=== PATIENT | male | born 1940 ===

== ENCOUNTER 2017-09-17 00:16 | Inpatient (IN) | payer MEDICARE, OTHER ==
[~2017-09-17] VITALS: Ht 172.7 cm; Wt 74.6 kg
[2017-09-17] MEDS ORDERED: MULT-503 PO (01:13)
[2017-09-17] MEDS ORDERED: DOCU-109 PO (01:13)
[2017-09-17] MEDS ORDERED: CYAN10005 PO (01:13)
[2017-09-17] MEDS ORDERED: ASPI-630 PO (01:13)
[2017-09-17] MEDS ORDERED: CHOL500050 PO (01:13)
[2017-09-17] MEDS ORDERED: SERT50TA PO (01:13)
[2017-09-17] MEDS ORDERED: QUET25TA5 PO (01:13)
[2017-09-17] MEDS ORDERED: FOLI1TAB16 PO (01:13)
[2017-09-17] MEDS ORDERED: LACT1TAB18 PO (01:13)
[2017-09-17] MEDS ORDERED: CALC1TAB75 PO (01:13)
[2017-09-17] MEDS ORDERED: METF500T4 PO (01:13)
[2017-09-17] MEDS ORDERED: SIMV20TA3 PO (01:13)
[2017-09-17] MEDS ORDERED: MAGNESIUM HYDROXIDE 2,400 MG/30 ML ORAL.SUSP. PO PRN (05:45)
[2017-09-17] MEDS ORDERED: ACETAMINOPHEN 325 MG TABLET PO PRN (05:45)
[2017-09-17] MEDS ORDERED: MAG HYDROX/AL HYDROX/SIMETH 30 ML ORAL.SUSP PO PRN (05:45)
[2017-09-17] MEDS ORDERED: METHYL SALICYLATE/MENTHOL TOPICAL OINTMENT 29GM TUBE. TP PRN (05:45)
--- NOTE | 2017-09-17 05:47 | NUR ---
Admission Note with Justification for Admission to [facility] Patient admitted to [facility] for protective oversight for emergency stabilization of acute psychiatric crisis. Pt admitted from: Hospital ER Mode of arrival: Secure Transport Accompanied By: Secure Transport Precipitating behaviors that initiated intake and admission:Increased agitation, Confusion and aggression over the last few weeks, Last evening pt became very agitated and aggressive stating "I'm going to get a gun and shoot you all then shoot myself" Description of failure of out patient attempts at stabilization in previous setting list behavior and medication trials: Facility collected a Urine sample to check for a UTI when increased confusion, aggression and Agitation began. Pt then started on Cipro x 10 days without change in behaviors noted, aggression, HI and SI continue Escalate. Behaviors and assessment findings upon admission: Pt disoriented calm and cooperative with cares and assessment, believes the year to be 1987, Oriented to self only. Apical pulse 68 and regular with S1 and S2 heart tones noted, respirations 22 shallow even and non-labored, Lung sounds diminished bilaterally, Bowel sounds active x 4 quads, ABD soft and non-tender to palpation, skin w/d with trace edema noted to BLE, Peripheral pulses palpable and equal bilaterally. Pt assisted into bed, VS, Height and weight obtained, Pt resting in bed without s/s of pain, discomfort or distress noted at this time. Plan: Admit for protective oversight for adjustment and stabilization of medications, behaviors and mood. Intense treatment regimen including groups, medication adjustments, therapy, consistent regimen for ADL's, self care, and sleep hygiene. Daily monitoring by Inpatient staff, Psychiatry, and Medical Physician.
--- NOTE | 2017-09-17 06:17 | EKG ---
[address] [address] Test Date: 2017-09-17 Test Time: 06:14:04 Pat Name: RADHA SILVERMAN Department: Room: [address] [place] [address] Gender: M Bottom Finisher: SANTIAGO : 1940 Requested By: MARISSA WATSON Order Number: [id number] Reading MD: Philippe Macias Measurements Intervals [place] Rate: 69 P: -24 [place]: 144 QRS: -20 QRSD: 78 T: 148 QT: 396 QTc: 426 Interpretive Statements SINUS RHYTHM BASELINE ARTIFACT NON-SPECIFIC ST/T CHANGES Electronically Signed On 09-19-2017 8:26:15 CDT by Philippe Macias
[2017-09-17 06:25] VITALS: BP 143/80
--- NOTE | 2017-09-17 06:45 | NUR ---
Nursing Note: Call placed to Dr. Lubin, Informed of admission and behaviors pt had been having prior to admission. Order received for Zydis 2.5mg PRN Q2H with Max dose of 10mg/24hrs
[2017-09-17] MEDS: CALCIUM CARB/VIT D3 500/200 TABLET PO SCH (08:11)
[2017-09-17] MEDS: DOCUSATE SODIUM 100 MG CAPSULE PO SCH ×2 (08:13→20:18)
[2017-09-17] MEDS: metFORMIN 500 MG TABLET PO SCH ×2 (08:13→14:24)
[2017-09-17] MEDS: CYANOCOBALAMIN (VITAMIN B-12) 1,000 MCG TABLET. PO SCH (08:13)
[2017-09-17] MEDS: SERTRALINE 50 MG TABLET. PO SCH (08:13)
[2017-09-17] MEDS: LACTOBACILLUS ACIDOPH & BULGAR 1 TABLET. PO SCH (08:14)
[2017-09-17] MEDS: FOLIC ACID 1 MG TABLET PO SCH (08:14)
[2017-09-17] MEDS: NICOTINE 21MG PATCH. TD SCH (08:14)
[2017-09-17] MEDS: ASPIRIN 81 MG TAB.CHEW PO SCH (08:14)
[2017-09-17] MEDS: MULTIVITAMIN with MINERAL TABLET. PO SCH (08:14)
[2017-09-17 08:31] LABS: ALBUMIN 3.5 g/dL (3.4-5.0); CALCIUM 9.3 mg/dL (8.5-10.1); GFR 72.8; MAGNESIUM 1.8 mg/dL (1.8-2.4); POTASSIUM 3.6 mmol/L (3.5-5.1); TOTAL BILIRUBIN 0.5 mg/dL (0.2-1.0); TOTAL PROTEIN 7.1 g/dL (6.4-8.2)
[2017-09-17 08:32] LABS: BASO # 0.1 x10^3/uL (0.0-0.2); BASO % 1 % (0-3); EOS # 0.2 x10^3/uL (0.0-0.7); EOS % 2 % (0-3); HEMATOCRIT 46.1 % (39.0-53.0); HEMOGLOBIN 15.7 g/dL (13.0-17.5); LYMPH # 2.6 x10^3/uL (1.0-4.8); LYMPH % 29 % (24-48); MEAN CORPUSCULAR HEMOGLOBIN 31 pg (25-35); MEAN CORPUSCULAR HGB CONC 34 g/dL (31-37); MEAN CORPUSCULAR VOLUME 91 fL (79-100); MONO # 0.6 x10^3/uL (0.0-1.1); MONO % 6 % (0-9); NEUT # 5.7 x10^3uL (1.8-7.7); NEUT % 61 % (31-73); PLATELET COUNT 262 x10^3/uL (140-400); RED BLOOD COUNT 5.08 x10^6/uL (4.30-5.70); RED CELL DISTRIBUTION WIDTH 14.4 % (11.5-14.5); WHITE BLOOD COUNT 9.3 x10^3/uL (4.0-11.0)
--- NOTE | 2017-09-17 13:49 | NUR ---
EARL reviewed Pt. insurance upon admit. SW was notified by virtual customer assistant nursing staff PT. did NOT have [employer] as the Pt's son stated the policy was canceled several months prior. Upon CSNAP prior to PT. admit, Active Part C policy for [employer] shows renewal date of 08/19/17. EARL contacted [employer] and verified that this Pt. does in fact have an active Part C [employer] plan. Pt's son, Ady, was notified and asked if he would like to have Pt. stay at this facility w/ a 45 % out of network co-insurance up to $10,000 or if the preference was for PT. to transfer to a facility that has in-network benefits. Ady stated he thought he canceled this policy, but would like for Pt. to transfer to an in-network facility. Ady stated [facility] in [place] is in-network and he contacted [facility] to send information to [place] for possible transfer. EARL again contacted [employer] to provide initial authorization review for Pt's current admit. 5 days initially authorized for 09/17/17-09/21/17 reference #[id number]. [facility] will be doing a bed search for in-network beds available for this SW to follow up w/regarding a transfer. If there are not any in-network beds available or a transfer is not accepted, [facility] will perform a 1-time single case agreement and provide auth. #. EARL was contacted by [facility] and was told they also are not in network w/[employer]. EARL stated there would be no reason for a transfer if they also are out of network.
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
[2017-09-17] MEDS ORDERED: CHOLECALCIFEROL (VITAMIN D3) 50,000 UNIT CAPSULE PO SCH (16:00)
[2017-09-17 16:04] VITALS: BP 171/96
--- NOTE | 2017-09-17 16:11 | NUR ---
EARL contacted in-network facilities provided by [facility] for possible transfer upon admission. EARL attempted to contact [facility] at [phone], however, was unable to reach anybody available to perform an intake and no way to leave a message. EARL spoke w/ Paula at [facility] at [phone] and was told they were FULL. EARL then contacted [facility] at [phone] and was told to fax an admission intake packet. EARL faxed to [phone]. EARL will notify [facility] in the am regarding outcome of admission/transfer and will be provided a single case agreement for today.
--- NOTE | 2017-09-17 16:20 | NUR ---
EARL contacted Robert Garsia's DPOA/son regarding status of transfer for Pt. EARL will follow up in the am as an admission referral was just sent to [facility].
--- NOTE | 2017-09-17 17:20 | NUR ---
Patient has been provided with Practical Counseling for tobacco cessation. It included a face to face interaction and the following was discussed: Recognizing danger situations, Developing coping skills,Basic cessation information. Will follow for discharge needs and discharge planning.
--- NOTE | 2017-09-17 18:05 | NUR ---
Behavior Intervention Response and Plan: BIRP Note: Behavior: Assumed Care of patient, patient located in Dining Room at shift change. Patient exhibited the following behavior Calm, Compliant, Cooperative. Brief assessment on rounds of vital signs, medication needs, lab studies, and pain. Treatment plan problems Dementia W/ BD and Fall Risk. Intervention: Patient assessed and the following interventions initiated safety checks 15 Minute Checks Cognitive Assessment , Head to toe Assessment , Medications. Response: After interactions and interventions patient responded in the following manner, Calm , Disorganized ,Cooperative. Continue to assess behaviors and condition will continue to monitor throughout the shift as needed. Patient educated on ADL's, and hand hygiene. Plan: Continue to monitor Master Treatment Plan for patient's progress toward short term goals of Decreased Agitation, Decreased Anxiety, termite treater goals to return to previous living setting vs placement. Continue to assess patient for changes in above assessment. Monitor for medication needs, pain, and safety concerns. Hourly rounding performed to ensure safe environment.
[2017-09-17 20:07] LABS: T3 TOTAL 92 ng/dL (71-180); THYROXINE 6.9 ug/dL (4.5-12.0)
[2017-09-17] MEDS: SIMVASTATIN 20 MG TABLET PO SCH (20:18)
[2017-09-17] MEDS: QUEtiapine 50 MG TABLET. PO SCH (20:18)
--- NOTE | 2017-09-17 20:51 | PDOC ---
Exam Elie Demential Exam: Elie Note: Please also refer to the separate dictated note~for this date of service dictated separately.~Patient seen individually. Discussed the patient with Nursing staff reviewed the chart.~Reviewed interim history and current functioning. Reviewed vital signs,~Labs/ Radiology~and current medications noted below. Continue current treatment with the changes noted in the dictated addendum note Assessment: Vital Signs: Vital Signs Date Time Temp Pulse Resp B/P (MAP) Pulse Ox O2 Delivery O2 Flow Rate FiO2 09/17/17 16:04 97.6 68 18 171/96 (121) 97 09/17/17 06:25 Room Air I&O Intake and Output 09/18/17 07:00 Intake Total 960 ml Balance 960 ml Intake Oral 960 ml Labs: Laboratory Tests Test 09/17/17 07:46 White Blood Count 9.3 x10^3/uL (4.0-11.0) Red Blood Count 5.08 x10^6/uL (4.30-5.70) Hemoglobin 15.7 g/dL (13.0-17.5) Hematocrit 46.1 % (39.0-53.0) Mean Corpuscular Volume 91 fL (79-100) Mean Corpuscular Hemoglobin 31 pg (25-35) Mean Corpuscular Hemoglobin Concent 34 g/dL (31-37) Red Cell Distribution Width 14.4 % (11.5-14.5) Platelet Count 262 x10^3/uL (140-400) Neutrophils (%) (Auto) 61 % (31-73) Lymphocytes (%) (Auto) 29 % (24-48) Monocytes (%) (Auto) 6 % (0-9) Eosinophils (%) (Auto) 2 % (0-3) Basophils (%) (Auto) 1 % (0-3) Neutrophils # (Auto) 5.7 x10^3uL (1.8-7.7) Lymphocytes # (Auto) 2.6 x10^3/uL (1.0-4.8) Monocytes # (Auto) 0.6 x10^3/uL (0.0-1.1) Eosinophils # (Auto) 0.2 x10^3/uL (0.0-0.7) Basophils # (Auto) 0.1 x10^3/uL (0.0-0.2) Sodium Level 142 mmol/L (136-145) Potassium Level 3.6 mmol/L (3.5-5.1) Chloride Level 106 mmol/L (98-107) Carbon Dioxide Level 29 mmol/L (21-32) Anion Gap 7 (6-14) Blood Urea Nitrogen 16 mg/dL (8-26) Creatinine 1.0 mg/dL (0.7-1.3) Estimated GFR (Cockcroft-Gault) 72.8 BUN/Creatinine Ratio 16 (6-20) Glucose Level 98 mg/dL (70-99) Calcium Level 9.3 mg/dL (8.5-10.1) Magnesium Level 1.8 mg/dL (1.8-2.4) Total Bilirubin 0.5 mg/dL (0.2-1.0) Aspartate Amino Transferase (AST) 15 U/L (15-37) Alanine Aminotransferase (ALT) 15 U/L (16-63) L Alkaline Phosphatase 85 U/L (46-116) Total Protein 7.1 g/dL (6.4-8.2) Albumin 3.5 g/dL (3.4-5.0) Albumin/Globulin Ratio 1.0 (1.0-1.7) 25-Hydroxy Vitamin D Total Pending Thyroxine (T4) 6.9 ug/dL (4.5-12.0) Total Triiodothyronine (TT3) 92 ng/dL (71-180) RPR Titer Additional Testing Pending Current Medications: Meds: Current Medications Acetaminophen (Tylenol) 650 mg PRN Q6HRS PRN PO PAIN / TEMP; Start 09/17/17 at 05:45 Multi-Ingredient Ointment (Analgesic [place]) 1 manan PRN QID PRN TP MUSCLE PAIN; Start 09/17/17 at 05:45 Al Hydroxide/Mg Hydroxide (Mylanta Plus Xs) 15 ml PRN AFTMEALHC PRN PO DYSPEPSIA; Start 09/17/17 at 05:45 Magnesium Hydroxide (Milk Of Magnesia) 2,400 mg PRN QHS PRN PO CONSTIPATION; Start 09/17/17 at 05:45 Nicotine (Nicoderm Cq 21mg) 1 patch DAILY TD Last administered on 09/17/17t 08 :14; Start 09/17/17 at 09:00 Quetiapine Fumarate (SEROquel) 25 mg QHS PO ; Start 09/17/17 at 21:00; Stop at 21:00; Status DC Sertraline HCl (Zoloft) 50 mg DAILY PO Last administered on 09/17/17 08:13; Start 09/17/17 at 09:00 Aspirin (Children'S Aspirin) 81 mg DAILY PO Last administered on 09/17/17 08: 14; Start 09/17/17 at 09:00 Vitamin D (Vitamin D3) 50,000 unit QM PO Last administered on 09/17/17 16:34 ; Start 09/17/17 at 16:00 Cyanocobalamin (Vitamin B-12) 1,000 mcg DAILY PO Last administered on 08:13; Start 09/17/17 at 09:00 Docusate Sodium (Colace) 100 mg BID PO Last administered on 09/17/17 20:18; Start 09/17/17 at 09:00 Folic Acid (Folic Acid) 1 mg DAILY PO Last administered on 09/17/17 08:14; Start 09/17/17 at 09:00 Metformin HCl (Glucophage) 500 mg BIDWMEALS PO Last administered on 09/17/17 14:24; Start 09/17/17 at 08:00 Simvastatin (Zocor) 20 mg HS PO Last administered on 09/17/17 20:18; Start 09/17/17 at 21:00 Calcium/Vitamin D (Oscal D 500mg/ 200uts) 0.5 tab DAILYWBKFT PO Last administered on 09/17/17 08:11; Start 09/17/17 at 08:00 Lactobacillus Acidophilus (Bacid, Elizabeth-Bid) 2 tab DAILY PO Last administered on 09/17/17 08:14; Start 09/17/17 at 09:00 Multivitamins/ Calcium (Thera-M Plus) 1 tab DAILY PO Last administered on 09/17 08:14; Start 09/17/17 at 09:00 Olanzapine (ZyPREXA ZYDIS) 2.5 mg PRN Q2HR PRN PO PSYCHOSIS; Start 09/17/17 at 06:45 Quetiapine Fumarate (SEROquel) 50 mg QHS PO Last administered on 10/30/17at 20: 18; Start 09/17/17 at 21:00 Active Scripts Active Reported Acidophilus (Lactobacillus Acidophilus) 1 Each Tablet 1 Tab PO DAILY Vitamin D3 (Cholecalciferol (Vitamin D3)) 50,000 Unit Capsule 50,000 Unit PO QM Vitamin B-12 (Cyanocobalamin (Vitamin B-12)) 1,000 Mcg Tablet 1,000 Mcg PO DAILY Thera-M (Multivits, W-,Other Min) 1 Each Tablet 1 Tab PO DAILY Simvastatin 20 Mg Tablet 20 Mg PO HS Zoloft (Sertraline Hcl) 50 Mg Tablet 50 Mg PO DAILY Seroquel (Quetiapine Fumarate) 25 Mg Tablet 25 Mg PO QHS Metformin Hcl 500 Mg Tablet 500 Mg PO BIDWMEALS Folic Acid 1 Mg Tablet 1 Mg PO DAILY Colace (Docusate Sodium) 100 Mg Capsule 100 Mg PO BID Calcium 600 + Vit D 200 Tablet (Calcium Carbonate/Vitamin D3) 1 Each Tablet 0.5 Tab PO DAILY Aspirin 81 Mg Tab.chew 81 Mg PO DAILY FABIANO WARREN MD Sep 17, 2017 20:51
[2017-09-17] MEDS ORDERED: QUEtiapine 25 MG TABLET. PO SCH (21:00)
[2017-09-17 21:48] LABS: THYROID STIM HORMONE (TSH) 3.755 uIU/mL (0.358-3.740)
--- NOTE | 2017-09-17 23:02 | NUR ---
Behavior Intervention Response and Plan: BIRP Note: Behavior: Assumed Care of patient, patient located in Patient Room at shift change. Patient exhibited the following behavior Calm, Disorganized, Withdrawn. Brief assessment on rounds of vital signs, medication needs, lab studies, and pain. Treatment plan problems 1 and 2. Intervention: Patient assessed and the following interventions initiated safety checks 15 Minute Checks Cognitive Assessment , Head to toe Assessment , Medications. Response: After interactions and interventions patient responded in the following manner, Calm , Compliant ,Cooperative. Continue to assess behaviors and condition will continue to monitor throughout the shift as needed. Patient educated on ADL's, and hand hygiene. 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 Continue to assess patient for changes in above assessment. Monitor for medication needs, pain, and safety concerns. Hourly rounding performed to ensure safe environment.
[2017-09-18] MEDS ORDERED: ACET325T9 PO (00:44)
[2017-09-18] MEDS ORDERED: MAG355OR17 PO (00:47)
[2017-09-18] MEDS ORDERED: MAGN2400 PO (00:48)
[2017-09-18] MEDS ORDERED: NICO1PAT21 TD (00:49)
[2017-09-18] MEDS ORDERED: METH29OI TP (00:49)
[2017-09-18] MEDS ORDERED: OLAN5TAB7 PO (00:51)
[2017-09-18] MEDS ORDERED: QUET50TA PO (00:52)
[2017-09-18 05:58] VITALS: BP 124/54
--- NOTE | 2017-09-18 09:00 | NUR ---
SW received message from [facility] regarding follow up for Pt. to transfer to in-network facility vs. stay at this facility and possibly receive a one time in network contract. EARL contacted [facility] w/[facility] regarding follow up on the referral sent yesterday. EARL was told they would review w/their drLaci and contact this SW w/an answer.
[2017-09-18] MEDS: LACTOBACILLUS ACIDOPH & BULGAR 1 TABLET. PO SCH (09:07)
[2017-09-18] MEDS: SERTRALINE 50 MG TABLET. PO SCH (09:08)
[2017-09-18] MEDS: MULTIVITAMIN with MINERAL TABLET. PO SCH (09:08)
[2017-09-18] MEDS: CALCIUM CARB/VIT D3 500/200 TABLET PO SCH (09:08)
[2017-09-18] MEDS: ASPIRIN 81 MG TAB.CHEW PO SCH (09:08)
[2017-09-18] MEDS: metFORMIN 500 MG TABLET PO SCH ×2 (09:09→17:22)
[2017-09-18] MEDS: DOCUSATE SODIUM 100 MG CAPSULE PO SCH ×2 (09:09→20:28)
[2017-09-18] MEDS: FOLIC ACID 1 MG TABLET PO SCH (09:09)
[2017-09-18] MEDS: CYANOCOBALAMIN (VITAMIN B-12) 1,000 MCG TABLET. PO SCH (09:09)
[2017-09-18] MEDS: NICOTINE 21MG PATCH. TD SCH (09:09)
--- NOTE | 2017-09-18 10:39 | NUR ---
Behavior Intervention Response and Plan: BIRP Note: Behavior: Assumed Care of patient, patient located in Hallway at shift change. Patient exhibited the following behavior Calm, Appropriate, Cooperative. Brief assessment on rounds of vital signs, medication needs, lab studies, and pain. Treatment plan problems 1 and 2. Intervention: Patient assessed and the following interventions initiated safety checks 15 Minute Checks Cognitive Assessment , Head to toe Assessment , Medications. Response: After interactions and interventions patient responded in the following manner, Disorganized , Compliant ,Cooperative. Continue to assess behaviors and condition will continue to monitor throughout the shift as needed. Patient educated on ADL's, and hand hygiene. Plan: Continue to monitor Master Treatment Plan for patient's progress toward short term goals of Decreased Agitation, Decreased Aggression, long-term goals to return to previous living setting vs placement. Continue to assess patient for changes in above assessment. Monitor for medication needs, pain, and safety concerns. Hourly rounding performed to ensure safe environment.
--- NOTE | 2017-09-18 12:17 | NUR ---
EARL received call from [facility] at [facility] regarding transfer referral. SW was requested to send Psych Eval for their review. EARL stated Psychiatrist rounded last evening, however, [facility] has not populated in system for this SW to access. EARL was told they would not consider referral w/o that information. EARL contacted [employer] for further assistance w/locating the HmP to send.
--- NOTE | 2017-09-18 12:22 | NUR ---
EARL again attempted to contact [facility] for possible transfer at [phone] as this was the number provided yesterday when EARL was attempting to provide referral intake. Again, no person answered the phone and no ability to leave a message. EARL then called the direct nurse number at [phone] and was provided w/a pager number for intakes. EARL paged [phone].
--- NOTE | 2017-09-18 12:54 | NUR ---
EARL spoke w/Salvador (pager [phone]) at [place] regarding referral to [facility]. EARL faxed admit referral to [phone] for review.
--- NOTE | 2017-09-18 12:54 | HP ---
ADMIT DATE: 09/17/2017 PSYCHIATRIC ADMISSION HISTORY/EVALUATION This is a late entry, date of service 09/17/2017 and covers elements not covered in my initial note of 09/17/2017. The patient seen individually evening of 09/17/2017 for this evaluation. Discussed with nursing staff, reviewed the chart, reviewed current and past records, discussed with Dr. Jesus, who had covered for me during my vacation the previous few days. IDENTIFYING DATA: The patient is a 76-year-old male referred to us from [facility] by Dr. Friedman, his primary care physician and Dr. Breen, psychiatrist after he was sent to the [facility] on 09/16/2017 due to increased agitation, aggression over the past several weeks. Symptoms had been escalating until the patient became suicidal, homicidal, stating he was going to kill staff and then himself with a plan to shoot everyone. He is extremely confused, psychotic, aggressive, disruptive, dangerous, referred for inpatient psychiatric stabilization. CHIEF COMPLAINT: "No." The patient is quite confused, oriented perhaps just to himself. HISTORY OF PRESENT ILLNESS: The patient has history of dementia, Alzheimer's vascular type. He has been residing at the above jail for some time, but over the past several days behaviors have been escalating. He has been more paranoid, depressed, confused. He has had sleep and appetite changes. No clear symptoms of bipolar disorder. PAST PSYCHIATRIC HISTORY: As above. PAST MEDICAL HISTORY: Coronary artery disease, diabetes mellitus, hyperlipidemia, hypertension, status post fracture right humerus in 12/2016. CODE STATUS: DNR. ALLERGIES: Versed and Vistaril. Accu-Cheks b.i.d. due to diabetes mellitus with use of metformin. DIET: Regular. MEDICATIONS: Whole. Ambulates with assistance. UA was negative at [facility], but he was put on a 10-day course of Cipro anyway. CURRENT PSYCHOTROPICS: Seroquel 25 mg at bedtime, Zoloft 50 mg a day, Zyprexa was added p.r.n. for psychosis, agitation. Takes his medications whole. REACTION TO HOSPITALIZATION: The patient oblivious to these assets. SOCIAL HISTORY: Supportive family, stable living at the jail. MENTAL STATUS EXAMINATION: The patient is seen individually evening of 09/17/2017. He is oriented to himself, somewhat withdrawn. Insight, judgment, recent and remote memory, attention, concentration, fund of knowledge poor, consistent with his diagnoses. He is somewhat delusional. No active suicidal or homicidal ideation. LABORATORY DATA: Reviewed. IMPRESSION: Major neurocognitive disorder, Alzheimer, vascular with depression, delusion, behavioral disturbance; anxiety disorder, unspecified; impulse control disorder, unspecified. Rest as above. PLAN: Admit to geropsychiatry unit at [facility]. I will see the patient daily individually from a psychiatric standpoint. Request medical followup with Dr. Gomez/Dr. Hurt. Continue the patient on his current psychotropics, increase Seroquel from 25 mg at bedtime to 50 mg at bedtime. Continue Zoloft along with Zyprexa p.r.n., cholinesterase inhibitors, on Namenda would have little benefit at this stage of his dementia and we will avoid using them. May consider Depakote as a mood stabilizer if the above changes are inadequate to help control his mood, anger, aggression. The patient's further decisions will be made as hospitalization progresses. Review drug interactions. Risk/benefit ratio favors no further change for now. FABIANO WARREN MD DR: OLGA/roque JOB#: [id number] / [id number]
--- NOTE | 2017-09-18 13:06 | NUR ---
SW attempted to contact [facility] to inform of current transfer to an in-network facility. EARL was told the cm was not available at this time and SW would receive a return call.
--- NOTE | 2017-09-18 14:32 | NUR ---
SW received call from Salvador [facility]aman [place] requesting records from Pt's facility. SW faxed clinical notes provided.
[2017-09-18 16:17] VITALS: BP 146/77
--- NOTE | 2017-09-18 16:19 | NUR ---
EARL contacted Salvador at [facility] regarding follow up w/final clinical notes provided by this EARL for possible transition admit. Salvador stated he has not been able to "move the referral forward" and would need to be followed up on tomorrow. EARL verified EARL would be contacted regarding possible transition first thing in the am. EARL faxed HmP and [place] notes to [facility] for possible transition admit. This was the only information needed for them to pursue review. EARL then attempted to contact [facility] to follow up on the authorization call as EARL called earlier in the day and was told a message was left for the and would return a call to this SW. EARL did not receive a return call, thus calling again at 1615 for follow up. EARL reached an after hours person who stated she had limited access to help with this situation other then to provide new authorization. EARL requested notes to be included stating this SW attempted to call in w/updated transition information twice today w/no ability to move forward. EARL was assured a note was put in the case file w/SW call in and information w/status of [facility] transition being at a stand still. Recommended for this SW to call back in the AM for follow up.
--- NOTE | 2017-09-18 19:22 | HP ---
ADMIT DATE: 09/17/2017 REASON FOR ADMISSION TO SENIOR BEHAVIORAL UNIT: This is a 76-year-old male who resides at [facility], but came from [facility]. He has been making suicidal ideation, homicidal threats, states he was going to shoot himself, increased confusion with aggression. Urinalysis was done, which was negative and he was sent to the ER. He was placed on antibiotics for 10 days, questionable reason. PAST MEDICAL HISTORY: Coronary artery disease, dementia, diabetes, hyperlipidemia, hypertension, impaired mobility. MEDICATIONS: Reviewed. SOCIAL HISTORY: The patient resides in a intermediate. He does currently smoke unknown amount. Refused flu shot at the intermediate. Refuses pneumonia shot. REVIEW OF SYSTEMS: Did not have any particular complaints. OBJECTIVE: VITAL SIGNS: Blood pressure 146/77, temperature 97.1, pulse 73, respirations 18, pulse ox 98% on room air. GENERAL: A disheveled 76-year-old in no acute distress. His height is 68 inches, weight is 164.38 pounds. HEENT: His hearing is normal. His eyes were clear, little bit bloodshot. His nose was patent. Throat was clear. Tongue was midline. NECK: Supple. LUNGS: Clear. CARDIOVASCULAR: Regular rhythm and rate. ABDOMEN: Soft, nontender. He is incontinent. EXTREMITIES: Without edema. MUSCULOSKELETAL: Moves all of his extremities. NEUROLOGIC: Cranial nerves appear to be intact. His gait is unsteady as he was observed yesterday. LABORATORY DATA: CBC was normal, slightly iron deficient, RPR nonreactive. Other studies pending as TSH 3.755. ASSESSMENT: 1. Dementia with behavior disturbance. 2. Frail, elderly. 3. Fall risk. 4. Diabetes. 5. Hypertension. PLAN: Follow along with Dr. Lubin to treat his medical conditions. CHIKIS MABRY DO DR: ROMEO/roque JOB#: [id number] / [id number]
[2017-09-18] MEDS: QUEtiapine 50 MG TABLET. PO SCH (20:28)
[2017-09-18] MEDS: SIMVASTATIN 20 MG TABLET PO SCH (20:28)
--- NOTE | 2017-09-18 22:00 | NUR ---
Behavior Intervention Response and Plan: BIRP Note: Behavior: Assumed Care of patient, patient located in Hallway at shift change. Patient exhibited the following behavior Restless, Disorganized, Agitated. Brief assessment on rounds of vital signs, medication needs, lab studies, and pain. Treatment plan problems . Intervention: Patient assessed and the following interventions initiated safety checks 15 Minute Checks Cognitive Assessment , Head to toe Assessment , Medications. Response: After interactions and interventions patient responded in the following manner, Agitated , Resistive ,Disorganized. Continue to assess behaviors and condition will continue to monitor throughout the shift as needed. Patient educated on ADL's, and hand hygiene. Plan: Continue to monitor Master Treatment Plan for patient's progress toward short term goals of Decreased Agitation, No harm To self/ others, ferry terminal supervisor goals to return to previous living setting vs placement. Continue to assess patient for changes in above assessment. Monitor for medication needs, pain, and safety concerns. Hourly rounding performed to ensure safe environment.
--- NOTE | 2017-09-18 22:19 | PDOC ---
Exam Elie Demential Exam: Elie Note: Please also refer to the separate dictated note~for this date of service dictated separately.~Patient seen individually. Discussed the patient with Nursing staff reviewed the chart.~Reviewed interim history and current functioning. Reviewed vital signs,~Labs/ Radiology~and current medications noted below. Continue current treatment with the changes noted in the dictated addendum note Assessment: Vital Signs: Vital Signs Date Time Temp Pulse Resp B/P (MAP) Pulse Ox O2 Delivery O2 Flow Rate FiO2 09/18/17 16:17 97.1 73 18 146/77 (100) 98 09/17/17 06:25 Room Air I&O Intake and Output 09/19/17 07:00 Intake Total 840 ml Balance 840 ml Intake Oral 840 ml Labs: Laboratory Tests Test 09/18/17 07:50 09/18/17 16:13 Glucose (Fingerstick) 77 mg/dL (70-99) 81 mg/dL (70-99) Current Medications: Meds: Current Medications Acetaminophen (Tylenol) 650 mg PRN Q6HRS PRN PO PAIN / TEMP; Start 09/17/17 at 05:45 Multi-Ingredient Ointment (Analgesic [place]) 1 alvin PRN QID PRN TP MUSCLE PAIN; Start 09/17/17 at 05:45 Al Hydroxide/Mg Hydroxide (Mylanta Plus Xs) 15 ml PRN AFTMEALHC PRN PO DYSPEPSIA; Start 09/17/17 at 05:45 Magnesium Hydroxide (Milk Of Magnesia) 2,400 mg PRN QHS PRN PO CONSTIPATION; Start 09/17/17 at 05:45 Nicotine (Nicoderm Cq 21mg) 1 patch DAILY TD Last administered on 09/18/17 09 :09; Start 09/17/17 at 09:00 Quetiapine Fumarate (SEROquel) 25 mg QHS PO ; Start 09/17/17 at 21:00; Stop at 21:00; Status DC Sertraline HCl (Zoloft) 50 mg DAILY PO Last administered on 09/18/17 09:08; Start 09/17/17 at 09:00 Aspirin (Children'S Aspirin) 81 mg DAILY PO Last administered on 09/18/17 09: 08; Start 09/17/17 at 09:00 Vitamin D (Vitamin D3) 50,000 unit QM PO Last administered on 09/17/17 16:34 ; Start 09/17/17 at 16:00 Cyanocobalamin (Vitamin B-12) 1,000 mcg DAILY PO Last administered on 09:09; Start 09/17/17 at 09:00 Docusate Sodium (Colace) 100 mg BID PO Last administered on 09/18/17 20:28; Start 09/17/17 at 09:00 Folic Acid (Folic Acid) 1 mg DAILY PO Last administered on 09/18/17 09:09; Start 09/17/17 at 09:00 Metformin HCl (Glucophage) 500 mg BIDWMEALS PO Last administered on 09/18/17 17:22; Start 09/17/17 at 08:00 Simvastatin (Zocor) 20 mg HS PO Last administered on 09/18/17 20:28; Start 09/17/17 at 21:00 Calcium/Vitamin D (Oscal D 500mg/ 200uts) 0.5 tab DAILYWBKFT PO Last administered on 09/18/17 09:08; Start 09/17/17 at 08:00 Lactobacillus Acidophilus (Bacid, Elizabeth-Bid) 2 tab DAILY PO Last administered on 09/18/17 09:07; Start 09/17/17 at 09:00 Multivitamins/ Calcium (Thera-M Plus) 1 tab DAILY PO Last administered on 09/18 09:08; Start 09/17/17 at 09:00 Olanzapine (ZyPREXA ZYDIS) 2.5 mg PRN Q2HR PRN PO PSYCHOSIS; Start 09/17/17 at 06:45 Quetiapine Fumarate (SEROquel) 50 mg QHS PO Last administered on 09/18/17 20: 28; Start 09/17/17 at 21:00 Active Scripts Active Reported Olanzapine Odt (Olanzapine) 5 Mg Tab.rapdis 2.5 Mg PO PRN Q2HR PRN NICODERM CQ 21mg (Nicotine) 1 Each Patch.td24 1 Patch TD DAILY Analgesic [place] (Methyl Salicylate/Menthol) 28 Gm Oint...g. 1 Alvin TP PRN QID PRN Milk Of Magnesia (Magnesium Hydroxide) 2,400 Mg/10 Ml Oral.susp 2,400 Mg PO PRN QHS PRN Advanced Antacid Liquid (Mag Hydrox/Al Hydrox/Simeth) 355 Ml Oral.susp 15 Ml PO PRN AFTMEALHC PRN Tylenol (Acetaminophen) 325 Mg Tablet 650 Mg PO PRN Q6HRS PRN Acidophilus (Lactobacillus Acidophilus) 1 Each Tablet 1 Tab PO DAILY Vitamin D3 (Cholecalciferol (Vitamin D3)) 50,000 Unit Capsule 50,000 Unit PO QM Vitamin B-12 (Cyanocobalamin (Vitamin B-12)) 1,000 Mcg Tablet 1,000 Mcg PO DAILY Thera-M (Multivits, W-,Other Min) 1 Each Tablet 1 Tab PO DAILY Simvastatin 20 Mg Tablet 20 Mg PO HS Zoloft (Sertraline Hcl) 50 Mg Tablet 50 Mg PO DAILY Seroquel (Quetiapine Fumarate) 25 Mg Tablet 25 Mg PO QHS Metformin Hcl 500 Mg Tablet 500 Mg PO BIDWMEALS Folic Acid 1 Mg Tablet 1 Mg PO DAILY Colace (Docusate Sodium) 100 Mg Capsule 100 Mg PO BID Calcium 600 + Vit D 200 Tablet (Calcium Carbonate/Vitamin D3) 1 Each Tablet 0.5 Tab PO DAILY Aspirin 81 Mg Tab.chew 81 Mg PO DAILY Diagnosis: Problems: (1) Alzheimer's dementia (2) Anxiety disorder (3) Dementia, vascular, with delusions (4) Impulse control disorder (5) Major depressive disorder, recurrent episode (6) Major neurocognitive disorder, due to vascular disease, with behavioral disturbance, mild FABIANO WARREN MD Sep 18, 2017 22:19
--- NOTE | 2017-09-18 22:30 | NUR ---
Pt wandering talking about 22 yr old son that was sentenced to execution. Thinks we are killing people here and that we are going to him as well. Approached staff and pts in an aggressive manner several times. PRN Delonte given and placed in bed.
--- NOTE | 2017-09-18 23:00 | NUR ---
Awake in bed calmer now no sign of aggression.
--- NOTE | 2017-09-19 01:50 | NUR ---
Wide awake in bed rambling unintelligible speech. PRN given.
--- NOTE | 2017-09-19 05:52 | NUR ---
Tylenol given for co hip pain.
[2017-09-19 06:04] VITALS: BP 134/65
[2017-09-19] MEDS: MULTIVITAMIN with MINERAL TABLET. PO SCH (08:10)
[2017-09-19] MEDS: SERTRALINE 50 MG TABLET. PO SCH (08:10)
[2017-09-19] MEDS: metFORMIN 500 MG TABLET PO SCH (08:10)
[2017-09-19] MEDS: LACTOBACILLUS ACIDOPH & BULGAR 1 TABLET. PO SCH (08:10)
[2017-09-19] MEDS: DOCUSATE SODIUM 100 MG CAPSULE PO SCH (08:10)
[2017-09-19] MEDS: FOLIC ACID 1 MG TABLET PO SCH (08:10)
[2017-09-19] MEDS: CALCIUM CARB/VIT D3 500/200 TABLET PO SCH (08:11)
[2017-09-19] MEDS: CYANOCOBALAMIN (VITAMIN B-12) 1,000 MCG TABLET. PO SCH (08:11)
[2017-09-19] MEDS: ASPIRIN 81 MG TAB.CHEW PO SCH (08:11)
[2017-09-19] MEDS: NICOTINE 21MG PATCH. TD SCH (08:12)
--- NOTE | 2017-09-19 09:00 | NUR ---
SW received message from Tasha at [facility] requesting additional information on Pt's DPOA status. EARL returned her call, leaving a message, stating the current DPOA paperwork clearly states it is "effectively immediately". SW is waiting on a call back from [facility] and [facility] regarding acceptance of transfer.
--- NOTE | 2017-09-19 10:09 | NUR ---
Behavior Intervention Response and Plan: BIRP Note: Behavior: Assumed Care of patient, patient located in Day Room at shift change. Patient exhibited the following behavior Calm, Social, Compliant. Brief assessment on rounds of vital signs, medication needs, lab studies, and pain. Treatment plan problems 1 and 2. Intervention: Patient assessed and the following interventions initiated safety checks 15 Minute Checks Cognitive Assessment , Head to toe Assessment , Medications. Response: After interactions and interventions patient responded in the following manner, Disorganized , Calm ,Compliant. Continue to assess behaviors and condition will continue to monitor throughout the shift as needed. Patient educated on ADL's, and hand hygiene. Plan: Continue to monitor Master Treatment Plan for patient's progress toward short term goals of Decreased Agitation, Decreased Aggression, extermination inspector goals to return to previous living setting vs placement. Continue to assess patient for changes in above assessment. Monitor for medication needs, pain, and safety concerns. Hourly rounding performed to ensure safe environment.
--- NOTE | 2017-09-19 10:16 | NUR ---
SW contacted Philly at [facility] [phone] to provide updates regarding transition to an in-network facility. EARL expressed the difficulty w/ both [facility] and [facility] providing a definitive answer on acceptance or denial. Philly stated for this SW to follow up today, and if there is not an answer by either facility, to contact her by 1500 and they would provide a single case agreement. Philly stated this would be in the Pt's best interest as he has been at this facility for now 3 days and this SW has spent too many hours attempting to transfer w/no luck. SW will follow up.
--- NOTE | 2017-09-19 11:13 | NUR ---
patient delusional, talking about bullets and a gun. Stated he would give nurse bullets, acting suspicious, this behavior continues from last nights episode. Given PRN zyprexa for psychosis per order and will continue to monitor.
[2017-09-19 11:45] VITALS: BP 115/62
--- NOTE | 2017-09-19 12:00 | NUR ---
At 1144 pediatric acute care unit nurse heard a thump and someone say "help". It was discovered that Patient was lying on the floor, on his right side, in his room near his bed. Patient stated he was "trying to lay down". It appeared that his right shoe was not on correctly. Patient has Hx of right wrist injury, and there is a bump on the joint of that wrist. Patient is stating that his right wrist is hurting. Received order from Dr. Lory Gomez at 1145 to obtain xray of right wrist. Vital signs obtained, WNL, patient assisted to the side of the bed.
--- NOTE | 2017-09-19 13:59 | NUR ---
SW received call from [facility] accepting Pt for transfer. SW will complete Hospital Transfer w/EMS form and contact Pt's son w/dc details.
--- NOTE | 2017-09-19 14:11 | RAD ---
Right wrist, 3 views, 09/19/2017: History: Fall, wrist pain The bony structures are demineralized. There is deformity of the distal radius due to an old impacted fracture. The fracture is predominantly healed. There is a lucency along the articular surface of the distal radius which is probably an old incompletely fused segment of the old fracture line. A new fracture is less likely. There is a mildly displaced nonunited ulnar styloid fracture which may be old. The carpal bones are intact. No wrist dislocation is evident. IMPRESSION: 1. Old distal radial fracture. A small re-fracture along its articular surface cannot entirely excluded. 2. Ulnar styloid fracture, also probably old.
--- NOTE | 2017-09-19 14:13 | NUR ---
[facility] Social Work Discharge Planning Form Patient Name RADHA SILVERMAN Admit Date: 09/17/17 DISCHARGE PLAN Discharge Destination: transfer to [facility] Entrance Transportation: EMS 09/19/17 DISCHARGE TO FACILITY Facility: [facility] Address: [address] [place] [address] [address], [place] [address] Contact Name: PCP: at location upon transfer Psychiatrist: at location upon transfer
--- NOTE | 2017-09-19 14:34 | NUR ---
Psychosocial Assessment completed w/PT's son/DPOAAdy. Pt. was born and raised in [place], [place] w/2 sisters. Pt. had a happy childhood w/no known trauma. No family history of Dementia or alcohol/substance abuse noted. Pt. completed HS, his named Lily and had 4 children named Elaine, Ady, Fuad ( from suicide) and Hima ( from suicide). Pt's at age 50 and PT. did not remarry. Pt. worked all his adult life as a [employer] [place]. Pt. has no history of alcohol or substance abuse and no known SI attempts. Pt. resided independently until December 2016 when he fell off his steps and broke his shoulder and arm. Pt. then transitioned from [place], [facility], and Pt's son's house until final admit to LTC at [facility] May 2017. Pt. was given a Dementia diagnosis recently this year at [facility]. GOALS: Pt. is unable to process this question due to cognitive impairment. Pt's son's Goal is to have Pt. transfer to an in-network facility to complete mental health stability and then transition to a memory care unit. 1. Family support 2. Community Support
--- NOTE | 2017-09-19 14:52 | NUR ---
per xray there is an old distal radial fracture. A small refracture along its articular surface cannot be entirely excluded. Ulnar styloid fracture, also probably old. Applied procare wrist splint per Dr. Gomez instruction.
--- NOTE | 2017-09-19 15:03 | NUR ---
Authorization from [facility] for September 17 and 2016 is #[id number] (single case agreement). Authorization that will be provided to Cornelio Messina for September 19- is #[id number] w/review scheduled on the . will provide this information to Cornelio Messina upon dc.
[2017-09-19] MEDS ORDERED: LORazepam 1 MG TABLET PO ONE (16:00)
--- NOTE | 2017-09-19 16:23 | NUR ---
discharged to [facility] at 1350 by EMS. Patient reluctant to get onto [facility]. Patient given ativan 1mg and zyprexa zydis 5mg PO prior to discharge. Report called to IVANNA Matos at [place].
--- NOTE | 2017-09-19 16:25 | NUR ---
Tobacco Discharge Note [facility] Tobacco Hotline called with patient prior to discharge, Patient combative at discharge, refused to call. Tobacco cessation medication listed with current medications for discharge. YES Transition Record was faxed to follow-up provider with the following elements: Reason for admission, procedures, tests, principal diagnosis, pending studies, patient instructions, 11/06 contact information for unit, phone number to obtain pending test results, plan for follow-up care, physician follow-up, advanced directive information, and medication list with dose, duration and instructions. This information was included in the following documents: History and physical, lab results, study results, progress notes, social work planning form, DC instruction form, patient visit summary, and medication reconciliation form. Date & time record faxed: 09/19/17 [id number] Record faxed to: [facility]. Record discussed with/ report given to: IVANNA Matos
--- NOTE | 2017-09-19 18:32 | PDOC ---
Exam Elie Demential Exam: Elie Note: Please also refer to the separate dictated note~for this date of service dictated separately.~Patient seen individually. Discussed the patient with Nursing staff reviewed the chart.~Reviewed interim history and current functioning. Reviewed vital signs,~Labs/ Radiology~and current medications noted below. Continue current treatment with the changes noted in the dictated addendum note Assessment: Vital Signs: Vital Signs Date Time Temp Pulse Resp B/P (MAP) Pulse Ox O2 Delivery O2 Flow Rate FiO2 09/19/17 11:45 88 17 115/62 (79) 98 Room Air 09/19/17 06:04 97.0 I&O Intake and Output 09/20/17 06:59 Intake Total 240 ml Balance 240 ml Intake Oral 240 ml Labs: Laboratory Tests Test 09/19/17 07:07 Glucose (Fingerstick) 78 mg/dL (70-99) Current Medications: Meds: Current Medications Acetaminophen (Tylenol) 650 mg PRN Q6HRS PRN PO PAIN / TEMP Last administered on 09/19/17 05:52; Start 09/17/17 at 05:45; Stop 09/19/17 at 16:28; Status DC Multi-Ingredient Ointment (Analgesic [place]) 1 alvin PRN QID PRN TP MUSCLE PAIN; Start 09/17/17 at 05:45; Stop 09/19/17 at 16:28; Status DC Al Hydroxide/Mg Hydroxide (Mylanta Plus Xs) 15 ml PRN AFTMEALHC PRN PO DYSPEPSIA; Start 09/17/17 at 05:45; Stop 09/19/17 at 16:28; Status DC Magnesium Hydroxide (Milk Of Magnesia) 2,400 mg PRN QHS PRN PO CONSTIPATION; Start 09/17/17 at 05:45; Stop 09/19/17 at 16:28; Status DC Nicotine (Nicoderm Cq 21mg) 1 patch DAILY TD Last administered on 09/19/17 08: 12; Start 09/17/17 at 09:00; Stop 09/19/17 at 16:28; Status DC Quetiapine Fumarate (SEROquel) 25 mg QHS PO ; Start 09/17/17 at 21:00; Stop at 21:00; Status DC Sertraline HCl (Zoloft) 50 mg DAILY PO Last administered on 09/19/17 08:10; Start 09/17/17 at 09:00; Stop 09/19/17 at 13:11; Status DC Aspirin (Children'S Aspirin) 81 mg DAILY PO Last administered on 09/19/17 08: 11; Start 09/17/17 at 09:00; Stop 09/19/17 at 16:28; Status DC Vitamin D (Vitamin D3) 50,000 unit QM PO Last administered on 09/17/17 16:34 ; Start 09/17/17 at 16:00; Stop 09/19/17 at 16:28; Status DC Cyanocobalamin (Vitamin B-12) 1,000 mcg DAILY PO Last administered on 08:11; Start 09/17/17 at 09:00; Stop 09/19/17 at 16:28; Status DC Docusate Sodium (Colace) 100 mg BID PO Last administered on 09/19/17 08:10; Start 09/17/17 at 09:00; Stop 09/19/17 at 16:28; Status DC Folic Acid (Folic Acid) 1 mg DAILY PO Last administered on 09/19/17 08:10; Start 09/17/17 at 09:00; Stop 09/19/17 at 16:28; Status DC Metformin HCl (Glucophage) 500 mg BIDWMEALS PO Last administered on 09/19/17 08:10; Start 09/17/17 at 08:00; Stop 09/19/17 at 16:28; Status DC Simvastatin (Zocor) 20 mg HS PO Last administered on 09/18/17 20:28; Start 09/17/17 at 21:00; Stop 09/19/17 at 16:28; Status DC Calcium/Vitamin D (Oscal D 500mg/ 200uts) 0.5 tab DAILYWBKFT PO Last administered on 09/19/17 08:11; Start 09/17/17 at 08:00; Stop 09/19/17 at 16: 28; Status DC Lactobacillus Acidophilus (Bacid, Elizabeth-Bid) 2 tab DAILY PO Last administered on 09/19/17 08:10; Start 09/17/17 at 09:00; Stop 09/19/17 at 16:28; Status DC Multivitamins/ Calcium (Thera-M Plus) 1 tab DAILY PO Last administered on 08:10; Start 09/17/17 at 09:00; Stop 09/19/17 at 16:28; Status DC Olanzapine (ZyPREXA ZYDIS) 2.5 mg PRN Q2HR PRN PO PSYCHOSIS Last administered on 09/19/17 11:15; Start 09/17/17 at 06:45; Stop 09/19/17 at 16:28; Status DC Quetiapine Fumarate (SEROquel) 50 mg QHS PO Last administered on 09/18/17 20: 28; Start 09/17/17 at 21:00; Stop 09/19/17 at 16:28; Status DC Sertraline HCl (Zoloft) 75 mg DAILY PO ; Start 09/20/17 at 09:00; Stop 09/20/17 at 09:00; Status DC Olanzapine (ZyPREXA ZYDIS) 5 mg 1X ONCE PO Last administered on 09/19/17 15: 53; Start 09/19/17 at 16:00; Stop 09/19/17 at 16:01; Status DC Lorazepam (Ativan) 1 mg 1X ONCE PO Last administered on 09/19/17 15:53; Start 09/19/17 at 16:00; Stop 09/19/17 at 16:01; Status DC Active Scripts Active Reported Quetiapine Fumarate 50 Mg Tablet 50 Mg PO QHS Olanzapine Odt (Olanzapine) 5 Mg Tab.rapdis 2.5 Mg PO PRN Q2HR PRN NICODERM CQ 21mg (Nicotine) 1 Each Patch.td24 1 Patch TD DAILY Analgesic [place] (Methyl Salicylate/Menthol) 28 Gm Oint...g. 1 Alvin TP PRN QID PRN Milk Of Magnesia (Magnesium Hydroxide) 2,400 Mg/10 Ml Oral.susp 2,400 Mg PO PRN QHS PRN Advanced Antacid Liquid (Mag Hydrox/Al Hydrox/Simeth) 355 Ml Oral.susp 15 Ml PO PRN AFTMEALHC PRN Tylenol (Acetaminophen) 325 Mg Tablet 650 Mg PO PRN Q6HRS PRN Acidophilus (Lactobacillus Acidophilus) 1 Each Tablet 2 Tab PO DAILY Vitamin D3 (Cholecalciferol (Vitamin D3)) 50,000 Unit Capsule 50,000 Unit PO QM Vitamin B-12 (Cyanocobalamin (Vitamin B-12)) 1,000 Mcg Tablet 1,000 Mcg PO DAILY Thera-M (Multivits, W-,Other Min) 1 Each Tablet 1 Tab PO DAILY Simvastatin 20 Mg Tablet 20 Mg PO HS Zoloft (Sertraline Hcl) 50 Mg Tablet 75 Mg PO DAILY Metformin Hcl 500 Mg Tablet 500 Mg PO BIDWMEALS Folic Acid 1 Mg Tablet 1 Mg PO DAILY Colace (Docusate Sodium) 100 Mg Capsule 100 Mg PO BID Calcium 600 + Vit D 200 Tablet (Calcium Carbonate/Vitamin D3) 1 Each Tablet 0.5 Tab PO DAILY Aspirin 81 Mg Tab.chew 81 Mg PO DAILY Diagnosis: Problems: (1) Major neurocognitive disorder, due to vascular disease, with behavioral disturbance, mild (2) Major depressive disorder, recurrent episode (3) Impulse control disorder (4) Dementia, vascular, with delusions (5) Anxiety disorder (6) Alzheimer's dementia FABIANO WARREN MD Sep 19, 2017 18:32
--- NOTE | 2017-09-19 22:35 | PN ---
DATE: 09/18/2017 PSYCHIATRIC PROGRESS NOTE This late entry, date of service 09/18/2017, covers elements not covered in my initial note of 09/18/2017. SUBJECTIVE: The patient was seen individually evening of 09/18/2017. Discussed with nursing staff, reviewed the chart. The patient remains confused, but is calmer, less psychotic, less agitated certainly oriented just to himself. Nevertheless, the intensity of the symptoms prompting admission including threats to kill staff members then himself, clearly indicates may need further observation to see if this is just temporary improvement. He slept 7 hours previous evening. REVIEW OF SYSTEMS: No CV, , pulmonary, eye, ENT system symptoms on review. Reliability poor. MENTAL STATUS EXAM: Oriented to himself. Insight, judgment, recent and remote memory, attention, concentration, fund of knowledge poor, consistent with his diagnosis. He does appear somewhat suspicious during one-on-one assessment, little irritable as I interacted with him part of this is consequent to his confusion, disorientation, misperception, and certainly felt the paranoia persists even though it is not manifesting as overt expressed aggression or suicidal or homicidal ideation. LABORATORIES: Reviewed. IMPRESSION: Major neurocognitive disorder vascular with depression, delusion and behavioral disturbance. Rest unchanged. PLAN: Increase Seroquel to 50 mg p.o. at bedtime. Continue Zoloft 50 mg a day starting 09/19/2017, we will increase it to 75 mg a day. Maintain the Zyprexa p.r.n. Review drug interactions, risk/benefit ratio favors no further change. MAN Pineda WARREN MD DR: OLGA/roque JOB#: [id number] / [id number]
[2017-09-20] MEDS ORDERED: SERTRALINE 50 MG TABLET. PO SCH (09:00)
--- NOTE | 2017-09-20 09:45 | DS ---
DATE OF DISCHARGE: 09/19/2017 This is a late entry for date of service 09/19/2017 and covers elements not covered in my initial note of 09/19/2017. REASON FOR ADMISSION: Please refer to the admission history for details. Briefly, the patient is a 76-year-old male, referred to us from [facility] by his primary care physician, on account of worsening confusion, agitation, aggression over the last several weeks. This was escalating until the patient became suicidal, was homicidal, stating he was going to kill staff and then himself with a plan to shoot everyone. Behaviors were deemed dangerous in the senior living, referred for inpatient psychiatric stabilization. SIGNIFICANT FINDINGS AND CLINICAL COURSE: Following admission, the patient was seen daily individually by myself, followed medically per Dr. Gomez/Dr. Hurt. He had been seen at [facility] prior to being referred to us and started on a 10-day course of Cipro, even though UA was negative but it was felt he might have some other occult infection worsening his agitation behaviors. During this hospitalization, his Seroquel was initiated, 25 mg orally at bedtime for his psychotic symptoms, marked mood lability, aggression, threatening behaviors and then increased to 50 mg orally at bedtime and Zoloft was adjusted to 50 mg a day. He was on Zyprexa p.r.n. He appeared to do somewhat better with all of this, but was still psychotic, intermittently agitated, but he was out of network in our facility and transferred to [facility] inpatient psychiatry service per the insurance coordination. Prior to discharge, no active suicidal or homicidal ideation. REVIEW OF SYSTEMS: No CV, , pulmonary, eye, ENT system symptoms on review. Reliability poor. MENTAL STATUS EXAM: Oriented to himself. Insight, judgment, recent and remote memory, attention, concentration, fund of knowledge poor, consistent with his diagnosis. When the emergency medical service staff came to transport him to [place], he was extremely agitated, psychotic, received Zyprexa and Ativan x 1 to help with transportation. FINAL DIAGNOSES: Major neurocognitive disorder, Alzheimer, vascular with depression, delusion, behavioral disturbance; anxiety disorder, unspecified; impulse control disorder, unspecified. Rest diagnoses unchanged from admission. DISCHARGE MEDICATIONS: Please refer to the MRAD. DISCHARGE INSTRUCTIONS: Further medical and psychiatric followup at [facility] inpatient geropsychiatry service. Time for discharge day management is greater than 30 minutes. FABIANO WARREN MD DR: OLGA/roque JOB#: [id number] / [id number]
== END 2017-09-19 15:50 | DRG 884 ==
LOC: GEROPSY 05:24
PROVIDERS: ADMIT Psychiatry & Neurology Psychiatry; ATTEND Psychiatry & Neurology Psychiatry
DX: F01.51 Vascular dementia, unspecified severity, with behavioral disturbance (principal); G30.9 Alzheimer's disease, unspecified; E11.9 Type 2 diabetes mellitus without complications; F02.81 Dementia in other diseases classified elsewhere, unspecified severity, with behavioral disturbance; F33.9 Major depressive disorder, recurrent, unspecified; E78.5 Hyperlipidemia, unspecified; R54 Age-related physical debility; F22 Delusional disorders; F41.9 Anxiety disorder, unspecified; F63.9 Impulse disorder, unspecified; I10 Essential (primary) hypertension; I25.10 Atherosclerotic heart disease of native coronary artery without angina pectoris; Z66 Do not resuscitate; Z91.81 History of falling; Z88.8 Allergy status to other drugs, medicaments and biological substances; Z87.81 Personal history of (healed) traumatic fracture
CPT/HCPCS: 36415; 73110; 80053; 80061; 82306; 82607; 82947; 83036; 83540; 83550; 83735; 84436; 84443; 84480; 85025; 86592; 86593; 93005; 99406